=== PATIENT | male | born 1945 | race Caucasian/White ===

== ENCOUNTER 2019-10-28 09:27 | Outpatient (CLI) | payer MEDICARE, SELFPAY ==
[2019-10-28 10:20] LABS: Hemoglobin A1C 6.3 % (<5.7)
== END 2019-10-28 09:28 | disposition home or self-care (01) ==
DX: R73.09 Other abnormal glucose (principal)
CPT/HCPCS: 36415; 83036

== ENCOUNTER 2019-11-09 16:31 | Outpatient (CLI) | payer MEDICARE, SELFPAY ==
[2019-11-09 17:15] LABS: Add Urine Microscopic? YES; Appearance Urine Clear (Clear); Bacteria Urine Trace /hpf; Bilirubin Urine Negative (Negative); Blood Urine 1+ (Negative); Color Urine Yellow (Yellow); Glucose Urine UA Negative (Negative); Ketones Urine Negative (Negative); Leukocyte Esterase Ur Negative LEU/UL (Negative); Mucus Urine Rare /lpf; Nitrate Urine Negative (Negative); Protein Urine Negative (Negative); Specific Grav Ur 1.012 (1.001-1.035); Squamous Epithelial Cell Urine Rare /hpf (Few); Urobilinogen Urine Negative mg/dL (<2.0); WBC Urine 0-3 /hpf
== END 2019-11-09 16:32 | disposition home or self-care (01) ==
DX: C25.2 Malignant neoplasm of tail of pancreas (principal); R35.0 Frequency of micturition; R39.15 Urgency of urination; R10.9 Unspecified abdominal pain
CPT/HCPCS: 81001

== ENCOUNTER 2019-11-10 10:21 | Outpatient (CLI) | payer MEDICARE, SELFPAY ==
--- NOTE | ~2019-11-10 | XR_ITS ---
XR abdomen/kub 1V 11/10/2019 10:42 INDICATION: Right flank pain TECHNIQUE: KUB COMPARISON: 06/07/2010 FINDINGS: Bowel gas pattern is normal. There is no evidence of free air, mass, organomegaly, ascites or obstruction. No abnormal calculi are seen. The bones appear intact. IMPRESSION: 1: No acute abdominal abnormality identified. Reviewed, dictated and finalized at location A.
== END 2019-11-10 10:22 | disposition home or self-care (01) ==
DX: R10.9 Unspecified abdominal pain (principal)
CPT/HCPCS: 74018

== ENCOUNTER 2019-11-10 11:13 | Emergency (ER) | payer MEDICARE, SELFPAY ==
--- NOTE | ~2019-11-10 | US_ITS ---
EXAMINATION: US venous doppler E LT DATE: 11/10/2019 12:13 INDICATION: Left hand swelling TECHNIQUE: Pop scale images with and without compression and Doppler images of the left upper extrem ity veins were obtained. COMPARISON: None. FINDINGS: The left internal jugular vein, subclavian vein, axillary vein, brachial veins, basilic vein, cephali c vein, radial vein, and ulnar vein are patent.] IMPRESSION: 1. Patent left upper extremity veins. No evidence of deep venous thrombosis. Reviewed, dictated and finalized at location A.
[2019-11-10 11:16] VITALS: BP 144/96; PULSE 95; RESP 20; TEMP 36.7; O2SAT 100
--- NOTE | 2019-11-10 11:36 | ED.GENADULT ---
HPI - General Adult General Chief complaint: Extremity Injury, Upper Stated complaint: Hand swelling Time Seen by Provider: 11/10/19 11:15 Source: patient Mode of arrival: ambulatory Limitations: no limitations History of Present Illness HPI narrative: Patient is a 74-year-old male who presents to emergency department for evaluation of left hand swelling and tightness that developed overnight patient denies injury or trauma patient notes he is currently receiving treatment for pancreatic cancer had chemotherapy prior to which was his last while he waits for surgery patient is managed by oncology at [facility]. Patient denies any other complaints at this time presents in no distress did take a narcotic pain pill this morning prior to arrival patient resting comfortably in the room and presents per private vehicle Related Data Allergies Allergy/AdvReac Type Severity Reaction Status Date / Time codeine Allergy Unknown Verified 05/01/18 12:27 Review of Systems Review of Systems: All systems reviewed & are unremarkable except as noted in HPI and below PMFSH Past Medical History Medical History COPD (chronic obstructive pulmonary disease) Hypertension Kidney stones Pancreatic cancer Surgical History Surgical History History of back surgery History of carpal tunnel surgery History of laparoscopy History of neck surgery History of thyroidectomy Social History Social History Smoking packs per day: 0.5 Smoking cigarettes per day: 10.0 Smoking status: Current every day smoker Gender identity (if verbalized by the patient): Male Exam Narrative: Exam Narrative: GENERAL: Well-appearing, well-nourished, and in no acute distress. HEAD: Normocephalic, atraumatic. EYES: PERRLA and EOMI. ENT: Nares clear, no rhinorrhea or epistaxis. Mucous membranes moist. CHEST: Clear to auscultation. No respiratory distress. No wheezes rales or rhonchi HEART: Regular rate and rhythm. No murmur heard. Normal peripheral pulses. ABDOMEN: Soft, nontender, nondistended EXTREMITIES: Normal range of motion. Patient with 1+ edema dorsal surface of the hand with edema into the digits patient without any erythema warmth to touch or wounds remainder of extremity nontender no deformity. SKIN: Warm, dry, no rash. NEURO: No focal deficits. Alert and oriented x3. Neurovascularly intact. Capillary refill less than 2 seconds PSYCH: Normal mood and affect. Course Course Emergency Course: Patient in the room in no distress aware of case findings treatment plan and diagnosis agreeing to follow-up as directed or to return if symptoms worsen or concerns Vital Signs Vital signs: Vital Signs Temperature 98.0 F 11/10/19 11:16 Pulse Rate 95 11/10/19 11:16 Respiratory Rate 11/10/19 11:16 Blood Pressure 144/96 H 11/10/19 11:16 Pulse Oximetry 100 11/10/19 11:16 Temperature 98.0 F 11/10/19 11:16 Pulse Rate 95 11/10/19 11:16 Respiratory Rate 11/10/19 11:16 Blood Pressure 144/96 H 11/10/19 11:16 Pulse Oximetry 100 11/10/19 11:16 Medical Decision Making MDM Narrative Medical decision making narrative: Patients injury or pain is consistent with musculoskeletal etiology. No signs of neurological or vascular compromise on exam. Compartments and tisues are soft without signs of compartment syndrome. Ultrasound negative for DVT. No erythema or warmth to touch or wounds noted. swelling of the is felt appropriate for further evaluation on an outpatient basis. Patient provided with reasons to return Vital Signs Vital Signs: Vital Signs Temperature 98.0 F 11/10/19 11:16 Pulse Rate 95 11/10/19 11:16 Respiratory Rate 11/10/19 11:16 Blood Pressure 144/96 H 11/10/19 11:16 Pulse Oximetry 100 11/10/19 11:16 Temperature 98.0
[2019-11-10 11:47] LABS: Hematocrit 35.5 % (42.0-52.0); Hemoglobin 11.9 g/dL (14.0-18.0); Mean Corpuscular HGB Conc 33.5 g/dl (32-36); Mean Corpuscular Hemoglobin 32.1 pg (26-34); Mean Corpuscular Volume 95.7 fl (80-100); Mean Platelet Volume 9.7 fl (7.4-10.4); Platelet Count Result 115 k/mm3 (150-375); Red Blood Count 3.71 M/mm3 (4.6-6.20)
[2019-11-10 11:48] LABS: White Blood Count 1.5 K/mm3 (4.5-10.0)
[2019-11-10 11:57] LABS: Eosinophils Absolute Manual 0.18 K/mm3 (0.02-0.5); Eosinophils Percent Manual 12 % (0-4); Lymphocytes Absolute Manual 1.23 K/mm3 (1.1-4.5); Monocytes Absolute Manual 0.03 K/mm3 (0.1-0.90); Monocytes Percent Manual 2 % (3-9); Neutrophils Percent Manual 4 % (46-73); Platelet Estimate Decreased (Adequate); Total Cells Counted 50
[2019-11-10 11:59] LABS: Blood Urea Nitrogen 15 mg/dL (9-20); Carbon Dioxide 27 mmol/L (22-30); Chloride 105 mmol/L (98-107); Estimated CRCL calculation 88 ml/min; Estimated Glomerular Filt Rate > 60; Glucose 120 mg/dL (75-110); Potassium 4.1 mmol/L (3.4-5.0); Sodium 136 mmol/L (137-145)
[2019-11-10 12:48] VITALS: BP 138/70; PULSE 78; RESP 16; O2SAT 99
[2019-11-10 12:51] VITALS: BP 138/70; PULSE 78; RESP 16; O2SAT 99
== END 2019-11-10 12:53 | disposition home or self-care (01) ==
PROVIDERS: Emergency Medicine Emergency Medical Services; Emergency Provider Emergency Medicine; PCP Internal Medicine
DX: M79.89 Other specified soft tissue disorders (principal); C25.9 Malignant neoplasm of pancreas, unspecified; J44.9 Chronic obstructive pulmonary disease, unspecified; I10 Essential (primary) hypertension; Z87.442 Personal history of urinary calculi; E89.0 Postprocedural hypothyroidism; F17.290 Nicotine dependence, other tobacco product, uncomplicated; Z79.899 Other long term (current) drug therapy
CPT/HCPCS: 36415; 74018; 80048; 85025; 93971; 99284

== ENCOUNTER 2019-11-17 14:26 | Outpatient (CLI) | payer MEDICARE, SELFPAY ==
[2019-11-17 15:14] LABS: Hematocrit 38.1 % (42.0-52.0); Hemoglobin 12.5 g/dL (14.0-18.0); Mean Corpuscular HGB Conc 32.8 g/dl (32-36); Mean Corpuscular Hemoglobin 32.4 pg (26-34); Mean Corpuscular Volume 98.7 fl (80-100); Mean Platelet Volume 9.9 fl (7.4-10.4); Platelet Count Result 220 k/mm3 (150-375); Red Blood Count 3.86 M/mm3 (4.6-6.20); Red Cell Distribution Width 17.9 % (11.5-14.5); White Blood Count 24.8 K/mm3 (4.5-10.0)
[2019-11-17 15:26] LABS: Alanine Aminotransferase 32 U/L (4-50); Albumin Level 3.9 g/dL (3.5-5.1); Alkaline Phosphatase 112 U/L (38-126); Aspartate Amino Transferase 39 U/L (17-59); Bilirubin,Total 0.2 mg/dL (0.2-1.3); Blood Urea Nitrogen 13 mg/dL (9-20); Calcium 8.7 mg/dL (8.4-10.2); Carbon Dioxide 24 mmol/L (22-30); Chloride 108 mmol/L (98-107); Estimated Glomerular Filt Rate > 60; Glucose 125 mg/dL (75-110); Potassium 3.7 mmol/L (3.4-5.0); Sodium 138 mmol/L (137-145); Uric Acid 5.7 mg/dL (3.5-8.5)
[2019-11-17 15:28] LABS: Rheumatoid Factor < 8.6 IU/ML (<12)
[2019-11-17 15:42] LABS: Erythrocyte Sedimentation Rate 43 mm/hr (0-20)
[2019-11-17 15:53] LABS: Band Neutrophils Percent 15 % (0-6); Lymphocytes Absolute Manual 5.95 K/mm3 (1.1-4.5); Lymphocytes Percent Manual 24 % (18-44); Total Cells Counted 100
[2019-11-17 15:55] LABS: Eosinophils Absolute Manual 1.24 K/mm3 (0.02-0.5); Eosinophils Percent Manual 5 % (0-4); Metamyelocytes Percent 5 %; Monocytes Absolute Manual 1.98 K/mm3 (0.1-0.90); Monocytes Percent Manual 8 % (3-9)
[2019-11-17 15:56] LABS: Neutrophils Absolute Manual 14.38 K/mm3 (1.3-6.7); Neutrophils Percent Manual 43 % (46-73); Nucleated Red Blood Cells 3 %; Ovalocytes 1+ (NORMAL); Platelet Estimate Adequate (Adequate)
[2019-11-17 15:57] LABS: Atypical Lymphocytes Present
[2019-11-20 21:46] LABS: Anti Cyclic Citrullinated Pept <16 Units (<20)
== END 2019-11-17 14:27 | disposition home or self-care (01) ==
DX: M25.50 Pain in unspecified joint (principal); C25.2 Malignant neoplasm of tail of pancreas; D70.1 Agranulocytosis secondary to cancer chemotherapy; T45.1X5A Adverse effect of antineoplastic and immunosuppressive drugs, initial encounter
CPT/HCPCS: 36415; 80053; 84550; 85025; 85652; 86200; 86430

== ENCOUNTER 2019-11-18 12:13 | Outpatient (CLI) | payer MEDICARE, SELFPAY ==
[2019-11-20 11:31] LABS: CA 19-9 66 U/mL (<34)
== END 2019-11-18 12:14 | disposition home or self-care (01) ==
DX: C25.2 Malignant neoplasm of tail of pancreas (principal); D70.1 Agranulocytosis secondary to cancer chemotherapy; T45.1X5A Adverse effect of antineoplastic and immunosuppressive drugs, initial encounter
CPT/HCPCS: 36415; 86301

== ENCOUNTER 2020-09-20 13:07 | Outpatient (CLI) | payer MEDICARE, SELFPAY ==
[2020-09-20 14:30] LABS: Alanine Aminotransferase 26 U/L (4-50); Albumin Level 4.4 g/dL (3.5-5.1); Alkaline Phosphatase 101 U/L (38-126); Anion Gap 6 mmol/L (8-16); Aspartate Amino Transferase 27 U/L (17-59); Bilirubin,Total 0.6 mg/dL (0.2-1.3); Blood Urea Nitrogen 16 mg/dL (9-20); Calcium 9.6 mg/dL (8.4-10.2); Carbon Dioxide 27 mmol/L (22-30); Chloride 104 mmol/L (98-107); Estimated Glomerular Filt Rate > 60; Glucose 117 mg/dL (75-110); Sodium 137 mmol/L (137-145)
[2020-09-20 14:31] LABS: Hemoglobin A1C 6.7 % (<5.7)
== END 2020-09-20 13:08 | disposition home or self-care (01) ==
LOC: ANHLAB 13:14
DX: E11.69 Type 2 diabetes mellitus with other specified complication (principal)
CPT/HCPCS: 36415; 80053; 83036

== ENCOUNTER 2021-02-06 01:18 | Emergency (ER) | payer MEDICARE, SELFPAY ==
[2021-02-06] VITALS (21 sets, daily range): BP systolic 121–142; BP diastolic 75–101; PULSE 80–91; RESP 13–25; TEMP 36.9; O2SAT 94–97
--- NOTE | ~2021-02-06 | XR_ITS ---
EXAMINATION: XR chest 1V portable INDICATION: Shortness of breath TECHNIQUE: Portable AP chest at 0 to 55 hours COMPARISON: 07/19/2019 FINDINGS: The lungs are free of acute opacities. There is no pleural effusion or pneumothorax. The ca rdiomediastinal silhouette is normal. There are changes of interval right total shoulder arthroplasty . IMPRESSION: 1. No acute cardiopulmonary abnormality. Reviewed, dictated and finalized at location A.
--- NOTE | ~2021-02-06 | XR_ITS ---
EXAMINATION: XR foot LT min 3V DATE: 02/06/2021 01:58 INDICATION: Left foot pain, initial encounter TECHNIQUE: Dorsoplantar, lateral, and 2 oblique views of the left foot were obtained. COMPARISON: None. FINDINGS: There are acute, traumatic, comminuted fractures of the second, third, and fourth metatarsa ls. Alignment at the fractures is near-anatomic. 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 There is soft tissue swelling of the foot near the fractures. No additional acut e osseous abnormality is identified. IMPRESSION: 1. Comminuted fractures of the second, third, and fourth metatarsals. Reviewed, dictated and finalized at location A.
--- NOTE | ~2021-02-06 | XR_ITS ---
EXAMINATION: XR ankle LT min 3V DATE: 02/06/2021 01:58 INDICATION: Left ankle pain TECHNIQUE: Anteroposterior, lateral, mortise, and additional oblique view of the ankle were obtained. COMPARISON: None. FINDINGS: Ankle alignment is normal. There is mild osteoarthritis. No ankle fracture is identified. T he ankle soft tissues are normal. There are fractures of the second through fourth metatarsals which will be described on the foot radiographs. IMPRESSION: 1. No ankle fracture. Reviewed, dictated and finalized at location A. IMPRESSION: 1. No ankle fracture.
--- NOTE | 2021-02-06 02:42 | ECG_ITS ---
Measurements Intervals [place] Rate: 85 P: 50 MT: 193 QRS: 39 QRSD: 113 T: 53 QT: 368 QTc: 438 Interpretive Statements SINUS RHYTHM INTRAVENTRICULAR CONDUCTION DELAY DELAYED PRECORDIAL R/S TRANSITION BASELINE ARTIFACT- I, II, III, AVR, AVL BORDERLINE ECG Electronically Signed On 02-06-2021 6:24:33 CDT by Eduardo Hernandez D.O.
[2021-02-06] MEDS: HYDROcodone/acetaminophen (*CRX) 5-325 MG TABLET 1 TAB PO (02:52)
[2021-02-06 03:10] LABS: Basophils Absolute Auto 0.1 K/mm3 (0.0-0.1); Basophils Percent Auto 0.8 % (0.2-1.2); Eosinophils Absolute Auto 1.2 K/mm3 (0-0.3); Eosinophils Percent Auto 10.4 % (0-4.4); Hematocrit 48.2 % (42.0-52.0); Hemoglobin 16.1 g/dL (14.0-18.0); Immature Granulocyte Absolute 0.04 K/mm3 (0.00-0.031); Immature Granulocyte Percent A 0.3 % (0-0.5); Lymphocytes Percent Auto 37.4 % (18.3-44.2); Mean Corpuscular HGB Conc 33.4 g/dl (32-36); Mean Corpuscular Hemoglobin 31.9 pg (26-34); Mean Corpuscular Volume 95.4 fl (80-100); Mean Platelet Volume 9.5 fl (7.4-10.4); Monocytes Absolute Auto 1.7 K/mm3 (0.1-0.6); Monocytes Percent Auto 14.3 % (2.6-8.5); Neutrophils Absolute Auto 4.3 K/mm3 (1.3-6.7); Neutrophils Percent Auto 36.8 % (45.5-73.1); Platelet Count Result 371 k/mm3 (150-375); Red Blood Count 5.05 M/mm3 (4.6-6.20); Red Cell Distribution Width 13.6 % (11.5-14.5); White Blood Count 11.8 K/mm3 (4.5-10.0)
[2021-02-06 03:19] LABS: Lactic Acid Reflex 1.8 mmol/L (0.7-2.1)
[2021-02-06 03:20] LABS: Alanine Aminotransferase 22 U/L (4-50); Alkaline Phosphatase 83 U/L (38-126); Anion Gap 8 mmol/L (8-16); Aspartate Amino Transferase 25 U/L (17-59); Bilirubin,Total 0.2 mg/dL (0.2-1.3); Blood Urea Nitrogen 16 mg/dL (9-20); Calcium 9.5 mg/dL (8.4-10.2); Carbon Dioxide 26 mmol/L (22-30); Chloride 102 mmol/L (98-107); Estimated Glomerular Filt Rate > 60; Glucose 171 mg/dL (65-110); Potassium 4.5 mmol/L (3.4-5.0); Sodium 136 mmol/L (137-145)
[2021-02-06 03:33] LABS: NT Pro B Type Natriuretic Pept 24 pg/mL (5-100); Troponin I < 0.012 ng/mL (0.000-0.034)
--- NOTE | 2021-02-06 03:55 | ED.GENADULT ---
HPI - General Adult General Chief complaint: Fall Stated complaint: fall/ foot pain/ near syncope Time Seen by Provider: 02/06/21 02:36 History of Present Illness HPI narrative: Patient 75-year-old gentleman who presents the emergency department with chief complaint of left foot pain. The patient states that he has had some coughing recently and his COPD is been somewhat flared up. Patient states that he was in the middle of a coughing fit and passed out. Patient states that whenever he he came to he was having pain in the dorsum of his left foot. The patient states the pain is worse with movement and improved with rest. The patient noted that there was swelling in the midfoot region and whenever he put weight on it it went from having a deformity to being back into normal shape. Related Data Allergies Allergy/AdvReac Type Severity Reaction Status Date / Time codeine Allergy Unknown Verified 05/01/18 12:27 Review of Systems Review of Systems: A 10 system review of systems was completed on the patient and is negative except for what is stated in the HPI. Nursing and ancillary documentation was reviewed. [facility] Past Medical History Medical History (Updated 02/06/21 @ 03:58 by Ken Muñoz MD) COPD (chronic obstructive pulmonary disease) Hypertension Kidney stones Pancreatic cancer Surgical History Surgical History History of back surgery History of carpal tunnel surgery History of laparoscopy History of neck surgery History of thyroidectomy Social History Social History Smoking packs per day: 0.5 Smoking cigarettes per day: 10.0 Smoking status: Current every day smoker Gender identity (if verbalized by the patient): Male Exam Narrative: GENERAL: Well-appearing, well-nourished, and in no acute distress. HEAD: Normocephalic, atraumatic. EYES: PERRLA and EOMI. ENT: Nares clear, no rhinorrhea or epistaxis. Mucous membranes moist. NECK: Supple. CHEST: Clear to auscultation. No respiratory distress. HEART: Regular rate and rhythm. No murmur heard. Normal peripheral pulses. ABDOMEN: Soft, nontender, nondistended, normal active bowel sounds. EXTREMITIES: Normal range of motion. No edema. Tenderness to palpation in the dorsum of the left foot SKIN: Warm, dry, no rash. NEURO: No focal deficits. Alert and oriented x3. PSYCH: Normal mood and affect. Course Vital Signs Vital signs: Vital Signs Temperature 36.9 C 02/06/21 01:17 Pulse Rate 90 02/06/21 01:17 Respiratory Rate 20 02/06/21 01:17 Blood Pressure 138/80 02/06/21 01:17 Pulse Oximetry 97 02/06/21 01:17 Temperature 36.9 C 02/06/21 01:17 Pulse Rate 90 02/06/21 01:17 Respiratory Rate 20 02/06/21 01:17 Blood Pressure 138/80 02/06/21 01:17 Pulse Oximetry 96 02/06/21 02:58 Medical Decision Making Vital Signs Vital Signs: Vital Signs Temperature 36.9 C 02/06/21 01:17 Pulse Rate 90 02/06/21 01:17 Respiratory Rate 20 02/06/21 01:17 Blood Pressure 138/80 02/06/21 01:17 Pulse Oximetry 97 02/06/21 01:17 Temperature 36.9 C 02/06/21 01:17 Pulse Rate 90 02/06/21 01:17 Respiratory Rate 20 02/06/21 01:17 Blood Pressure 138/80 02/06/21 01:17 Pulse Oximetry 96 02/06/21 02:58 Lab Data Result diagrams: 02/06/21 03:01 02/06/21 03:01 Labs: Lab Results 02/06/21 02/06/21 02/06/21 Range/Units 03:01 03:01 03:01 WBC Pending RBC Pending Hgb Pending Hct Pending MCV Pending MCH Pending MCHC Pending RDW Pending Plt Count Pending MPV Pending Immature Gran % (Auto) Pending Neut % (Auto) Pending Lymph % (Auto) Pending [place] % (Auto) Pending Eos % (Auto) Pending Baso % (Auto) Pending Lymph # (Auto) Pending [place] # (Auto) Pending
== END 2021-02-06 04:30 | disposition home or self-care (01) ==
PROVIDERS: Emergency Provider Emergency Medicine
DX: S92.322A Displaced fracture of second metatarsal bone, left foot, initial encounter for closed fracture (principal); S92.332A Displaced fracture of third metatarsal bone, left foot, initial encounter for closed fracture; S92.342A Displaced fracture of fourth metatarsal bone, left foot, initial encounter for closed fracture; J44.1 Chronic obstructive pulmonary disease with (acute) exacerbation; I10 Essential (primary) hypertension; Z85.07 Personal history of malignant neoplasm of pancreas; Z87.442 Personal history of urinary calculi; E89.0 Postprocedural hypothyroidism; F17.210 Nicotine dependence, cigarettes, uncomplicated; I45.9 Conduction disorder, unspecified; W18.39XA Other fall on same level, initial encounter
CPT/HCPCS: 36415; 71045; 73610; 73630; 80053; 83605; 83880; 84484; 85025; 93005; 99284; A9270

== ENCOUNTER 2021-05-09 12:17 | Outpatient (CLI) | payer MEDICARE, SELFPAY ==
--- NOTE | 2021-05-10 14:29 | P.PCNPFT_ITS ---
PFT Procedure Performed PFT Procedure Performed Spirometry with Pre/Post Bronchodilator Plethysmography (Lung Vol) Diffusing Cap (DLCO) Flow Vol Loop PFT Interpretation Lung volumes were measured with the body plethysmography method. The elevated RV may be indicative of air trapping. The remainder lung volumes are unre markable. Spirometry showed diminished expiratory flow rates and a diminished FEV1 to FVC ratio 48%, consistent with obstructive airway disease. Following administration of a bronchodilator, there was significant increase in the forced vital capacity. Lung diffusion capacity is moderately reduced at 57% predicted. Flow volume loop is consistent with obstructive airway disease. Impression: Moderately severe obstructive airway disease with evidence of air trapping and significant response to bronchodilators on this testing. Moderately reduced lung diffusion capacity.
--- NOTE | 2021-05-10 14:34 | P.PCNSIX_ITS ---
Six Minute Walk Procedure Procedure Performed Pulmonary Stress Test (6 min walk) Six Minute Walk The 6 minute walk test was carried out with the patient breathing ambient air. The pre walk oxyhemoglobin saturation was 96%. The patient was able to walk 213 m with no stops recorded. During the walk, the oxyhemoglobin s aturation remained over 92%. Impression: No evidence of oxyhemoglobin saturation on this testing.
== END 2021-05-09 12:18 | disposition home or self-care (01) ==
LOC: ANHPFT 12:19
PROVIDERS: PCP Internal Medicine; Visit Provider Internal Medicine Pulmonary Disease
DX: J44.9 Chronic obstructive pulmonary disease, unspecified (principal); R94.2 Abnormal results of pulmonary function studies
CPT/HCPCS: 94060; 94618; 94726; 94729

== ENCOUNTER 2022-04-12 09:20 | Emergency (ER) | payer OTHER, SELFPAY ==
--- NOTE | 2022-04-12 09:26 | ED.UPPEXIN ---
HPI - Extremity Injury (Upper) General Chief Complaint: Extremity Problem,Nontraumatic Stated Complaint: Left Elbow Pain Time Seen by Provider: 04/12/22 09:35 Source: patient, RN notes reviewed and old records reviewed Mode of arrival: ambulatory Limitations: no limitations History of Present Illness HPI narrative: 76-year-old male presents to [facility] with complaints of left elbow pain. Patient reports on March 28 he fell hitting his elbow. Denies hitting head or any loss of consciousness. Saturday noted a large bruise to his forearm, called primary care provider and was instructed to ice it and elevate it. Today woke up with a bruise to the medial aspect left upper arm. is concerned for a blood clot. History of blood clots secondary to pancreatic cancer. Has a recurrence and is being evaluated currently. Has a history of COPD, high blood pressure, diabetes. MD complaint: injury to: left and elbow Onset (ago): week(s) (2) Other Extremity Injury: Left: elbow Related Data Home Medications Medication Instructions Recorded Confirmed amlodipine 5 mg tablet 5 mg PO DAILY 04/07/21 04/09/22 aspirin 81 mg tablet,delayed 81 mg PO DAILY 04/07/21 04/09/22 release (Adult Aspirin Regimen) atorvastatin 10 mg tablet 10 mg PO DAILY 04/07/21 04/09/22 cholecalciferol (vitamin D3) 25 25 mcg PO DAILY 04/07/21 04/09/22 mcg (1,000 unit) tablet cyclobenzaprine 10 mg tablet 10 mg PO TID 04/07/21 04/09/22 dicyclomine 10 mg capsule 10 mg PO BID 04/07/21 04/09/22 guaifenesin 600 mg tablet, 600 mg PO BID 04/07/21 04/09/22 extended release 12 hr (Mucus Relief ER) hydrocodone 5 mg-acetaminophen 325 1 tablet PO QHS PRN Pain 04/07/21 04/09/22 mg tablet hydroxyzine HCl 25 mg tablet 25 mg PO BID PRN Anxiety 04/07/21 04/09/22 levothyroxine 125 mcg capsule 125 mcg PO DAILY 04/07/21 04/09/22 losartan 100 mg tablet 100 mg PO DAILY 04/07/21 04/09/22 metformin 500 mg tablet 500 mg PO BID 04/07/21 04/09/22 pantoprazole 40 mg tablet,delayed 40 mg PO QAM 04/07/21 04/09/22 release pregabalin 150 mg capsule 150 mg PO BID 04/07/21 04/09/22 prochlorperazine maleate 10 mg 10 mg PO Q8H PRN Nausea And 04/07/21 04/09/22 tablet Vomiting sumatriptan succinate 50 mg tablet 50 mg PO ONCE 04/07/21 04/09/22 vitamin B complex (B 1 tablet PO DAILY 04/07/21 04/09/22 Complex-Vitamin B12 tablet) fluoxetine 40 mg capsule mg 04/12/22 insulin glargine 100 unit/mL (3 unit subcut 04/12/22 mL) subcutaneous pen (Lantus Solostar U-100 Insulin) pioglitazone 15 mg tablet mg 04/12/22 Allergies Allergy/AdvReac Type Severity Reaction Status Date / Time codeine Allergy Unknown Abdominal Verified 04/09/22 09:31 Pain Review of Systems Review of Systems: All systems reviewed & are unremarkable except as noted in HPI and below Constitutional: Constitutional: Reports no additional constitutional complaints, Denies chills and Denies fever(s) Eyes: Eyes: Reports no additional eye complaints ENT: Reports system reviewed and no additional complaints, except as documented Cardiovascular: Cardiovascular: Reports no additional cardiovascular complaints Respiratory: Respiratory: Reports no additional respiratory complaints Gastrointestinal: Gastrointestinal: Reports no additional gastrointestinal complaints Musculoskeletal: Musculoskeletal: Reports as per HPI, Reports arthralgias (Left elbow), Denies joint swelling and Reports other (Swelling noted to the left hand and forearm) Integumentary/Breasts: Skin/Breast: Reports as per HPI and Reports unusual bruising Neurologic: Reports system reviewed and no additional complaints, except as documented Psychiatric: Psychiatric: Reports no additional psychiatric complaints Hematologic/Lymphatic: Hematologic/Lymphatic: Reports as per HPI and Reports easy bruising Allergic/Immunologic: Allergic/Immunologic: Reports no additional allergic/immunologic complaints PMFSH Past Medical History Medical His
[2022-04-12 09:31] VITALS: BP 156/85; PULSE 84; RESP 20; TEMP 36.6; O2SAT 97
== END 2022-04-12 09:55 | disposition short-term general hospital (02) ==
PROVIDERS: Emergency Provider Nurse Practitioner
DX: S50.12XA Contusion of left forearm, initial encounter (principal); S40.022A Contusion of left upper arm, initial encounter; X58.XXXA Exposure to other specified factors, initial encounter; C25.9 Malignant neoplasm of pancreas, unspecified; Z86.2 Personal history of diseases of the blood and blood-forming organs and certain disorders involving the immune mechanism; J44.9 Chronic obstructive pulmonary disease, unspecified; I10 Essential (primary) hypertension; E11.9 Type 2 diabetes mellitus without complications; Z79.84 Long term (current) use of oral hypoglycemic drugs; F17.210 Nicotine dependence, cigarettes, uncomplicated; Z79.82 Long term (current) use of aspirin
CPT/HCPCS: 99212; G0463

== ENCOUNTER 2022-04-12 10:15 | Emergency (ER) | payer OTHER, SELFPAY ==
--- NOTE | 2022-04-12 10:18 | PC.NURSE ---
After registered but before arm band could be put on; pt. and his spouse decided he would go to [facility]. where his doctor is ; hx of pancreatic CA and receiving care in [place] . LOS 1 minute. Pt. SOB but states he is at his baseline; asked twice while registering and stated each time his current breathing pattern is normal for him especially in a mask . Pt. ambulated in and out of ED.
== END 2022-04-12 10:18 | disposition left against medical advice (07) ==
LOC: ANHED 10:23
DX: Z53.21 Procedure and treatment not carried out due to patient leaving prior to being seen by health care provider (principal)
CPT/HCPCS: 99199

== ENCOUNTER 2023-03-07 09:12 | Outpatient (CLI) | payer OTHER, SELFPAY ==
[2023-03-07 11:38] LABS: Thyroid Stimulating Hormone Reflex 0.154 uIU/mL (0.465-4.68)
[2023-03-07 14:19] LABS: Free T4 Free Thyroxine Reflex 1.48 ng/dL (0.78-2.19)
[2023-03-07 17:23] LABS: Total Triiodothyronine (T3) 1.23 NG/ML (0.97-1.69)
== END 2023-03-07 09:13 | disposition home or self-care (01) ==
DX: E89.0 Postprocedural hypothyroidism (principal)
CPT/HCPCS: 36415; 84439; 84443; 84480